=== PATIENT | female | born 1980 | race Caucasian/White ===

== ENCOUNTER 2020-11-16 12:00 | Emergency (ER) | payer BC ==
--- OUTSIDE RECORDS SUMMARY | 2020-11-16 12:05 | XMS REPORT | Continuity of Care Document ---
:1980 Author Organization [facility] t Address [address] [place] [address] Care Team Providers Name Role Phone Pcp MD Primary Care Physician Unavailable Payers Payer Name Policy Type Policy Number Effective Date Expiration Date S ource Problems This patient has no known problems. Allergies, Adverse Reactions, Alerts Allergy Allergy Status Severity Reaction(s) Onset Inactive Treating Comm ents Source Name Type Date Date Clinician No Known DA Active [facility] 10-17 Clear Intolera 00:00: Jarrell nces 00 [facility] Social History Social Habit Start Date Stop Date Quantity Comments Source Sex Assigned At [facility] Medications This patient has no known medications. Procedures This patient has no known procedures. Plan of Care Planned Activity Planned Date Details Comments Source Future Scheduled 2020-08-[address] [facility] - Test 00:00:00 (12+) [code = [facility] DEPRESSION SCREENING (12+)] Future Scheduled 2020-04-[address] [facility] - Test 00:00:00 (#1) [code = [facility] INFLUENZA VACCINE (#1)] Future Scheduled 2018-06-23 DTAP/TDAP/TD VACCINES [facility] - Test 00:00:00 (2 - Td) [code = [facility] ter DTAP/TDAP/TD VACCINES (2 - Td)] Future Scheduled [address] [facility] - Test 00:00:00 malignant ne[facility] cervix (procedure) [code = 392577012] Future Scheduled 1996-02-10 HEPATITIS C SCREENING [facility] - Test 00:00:00 [code = HEPATITIS C [facility] SCREENING] Results Test Description Test Time Test Comments Results Result Sourc e Comments MR, MRI BREAST, 2019-08-12 MRN#: WITHOUT 14:56:00 [id number] - MR, MRI BREAST, WITHOUTBREAST MRI OF BOTH BREASTS : 08/12/2019Comparison is made to exams dated: 04/29/2012 breast MRI and 11/13/2008 breast MRI - [facility]. MRI images were obtained with a dedicated breast coil. Multiplanar and multisequence MR images of the breasts are obtained before and after intravenous 13 cc Multihance contrast administration. Post contrast dynamic images are acquired, with subtraction images obtained.The images were analyzed using Scrapblog software. There is mild background enhancement in both breasts. The breast fibroglandular tissues are heterogenously dense.Nonspecific subcentimeter foci of contrast enhancement are noted in both breasts, without suspicious contrast enhancement pattern. Scattered benign cysts are seen in both breasts. IMPRESSION: BENIGN Benign breast MRI. Correlation with mammography is recommended. Patsy Morrow M.D. pth/:08/12/2019 14:56:42 Normal Exam MRI BI-RADS: 2 Benign [id number]
--- NOTE | 2020-11-16 15:12 | RAD REPORT ---
EXAM DESCRIPTION: RAD - Chest Pa And Lat (2 Views) - 11/16/2020 3:07 pm CLINICAL HISTORY: SOB Chest pain. COMPARISON: No comparisons FINDINGS: Bilateral interstitial lung opacities are seen. These are likely related to viral pneumoni a or bronchitis. The heart is normal in size. No displaced fractures.
[2020-11-16] MEDS ORDERED: NA CHLORIDE 0.9% 1,000 ML ONE (17:09)
[2020-11-16 17:23] LABS: Absolute Lymphocytes (CBC) 1.2 K/uL (0.7-4.9); Basophils % 0.2 % (0-1.3); Hematocrit 38.4 % (36.0-45.0); Lymphocytes % 29.1 % (15.3-44.8); MPV 9.5 fL (7.6-11.3); RBC Red Blood Cell Count 4.24 M/uL (3.86-4.86)
[2020-11-16 17:26] LABS: Protime INR 0.97
[2020-11-16 18:26] LABS: ALT/SGPT 29 U/L (12-78); AST/SGOT 22 U/L (15-37); Alkaline Phosphatase 66 U/L (45-117); BUN Blood Urea Nitrogen 10 mg/dL (7-18); Bicarbonate 24 mmol/L (21-32); Bilirubin Direct < 0.1 mg/dL (0-0.2); Bilirubin Total 0.3 mg/dL (0.2-1.0); C-Reactive Protein 7.39 mg/L (<3.00); Ferritin 42.1 ng/mL (8-388); Glucose Level 98 mg/dL (74-106); Lipase 131 U/L (73-393); Potassium 3.6 mmol/L (3.5-5.1); Sodium Level 139 mmol/L (136-145); Troponin (Emerg Dept Use Only) < 0.02 ng/mL (0.0-0.045)
--- NOTE | 2020-11-16 18:29 | EDPHYS ---
Physician Documentation [facility] Name: Linda Adkins Age: 40 yrs Sex: Female : 1980 Arrival Date: 11/16/2020 Time: 12:10 Bed 2 Private MD: ED Physician Guillermo Holland HPI: 11/16 19:51 This 40 yrs old Female presents to ER via Ambulatory with complaints of kb COVID+, Shortness Of Breath, Fast Heart rate. 19:51 The patient or guardian reports cough, that is intermittent, described as mild, with no kb sputum, difficulty breathing, flu symptoms, low-grade fever, myalgias. Onset: The symptoms/episode began/occurred 1 week(s) ago. Severity of symptoms: At their worst the symptoms were moderate, in the emergency department the symptoms are unchanged. Modifying factors: The symptoms are alleviated by nothing, the symptoms are aggravated by nothing. Associated signs and symptoms: Pertinent positives: fever, Pertinent negatives: chest pain, diarrhea, ear ache, nausea, rhinorrhea, sore throat, vomiting. The patient has not experienced similar symptoms in the past. The patient has been recently seen by a physician:. Pt reports she had some shortness of breath this morning and her heart rate was 120. States "I think I freaked myself out." Pt feeling better now, but wanted to get checked out. Pt is covid positive. 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 - Social history:: Smoking status: Patient denies any tobacco usage or history of. ROS: 19:49 Cardiovascular: Negative for chest pain, palpitations, and edema, Abdomen/GI: Negative kb for abdominal pain, nausea, vomiting, diarrhea, and constipation, : Negative for injury, bleeding, discharge, and swelling, MS/Extremity: Negative for injury and deformity, Skin: Negative for injury, rash, and discoloration, Neuro: Negative for headache, weakness, numbness, tingling, and seizure. 19:49 Constitutional: Positive for body aches, chills, fatigue, fever, malaise. 19:49 Respiratory: Positive for dyspnea on exertion, shortness of breath. Exam: 19:51 Constitutional: This is a well developed, well nourished patient who is awake, alert, kb and in no acute distress. Head/Face: Normocephalic, atraumatic. Cardiovascular: Regular rate and rhythm with a normal S1 and S2. No gallops, murmurs, or rubs. No pulse deficits. Respiratory: Respirations even and unlabored. No increased work of breathing, no retractions or nasal flaring. Abdomen/GI: Soft, non-tender. No distention Skin: Warm, dry with normal turgor. Normal color. MS/ Extremity: Pulses equal, no cyanosis. Neurovascular intact. Full, normal range of motion. Neuro: Awake and alert, GCS 15, oriented to person, place, time, and situation. Moves all extremities. Normal gait. Vital Signs: 12:29 BP 121 / 80; Pulse 100; Resp 17; Temp 97.9; Pulse Ox 100% on R/A; Weight 63.5 kg; ll1 Height 5 ft. 9 in. (175.26 cm); Pain 6/10; 16:49 BP 120 / 78; Pulse 80; Resp 16; Pulse Ox 100% on R/A; sv 17:46 BP 114 / 72; Pulse 65; Resp 16; Pulse Ox 98% on R/A; iw 12:29 Body Mass Index 20.67 (63.50 kg, 175.26 cm) ll1 MDM: 16:23 Patient medically screened. kb 18:28 Data reviewed: vital signs, nurses notes. Data interpreted: Pulse oximetry: on room air kb is 98 %. Interpretation: normal. Counseling: I had a detailed discussion with the patient and/or guardian regarding: the historical points, exam findings, and any diagnostic results supporting the discharge/admit diagnosis, lab results, radiology results, the need for outpatient follow up, a family practitioner, to return to the emergency department if symptoms worsen or persist or if there are any questions or concerns that arise at home. 11/16 16:25 Order name: BMP; Complete Time: 18:28 kb 11/16 16:25 Order name: C-Reactive Protein; Complete Time: 18:28 kb 11/16 16:25 Order name: CBC with Diff; Complete Time: 17:24 kb 11/16 16:25 Order name: D-Dimer; Complete Time: 17:46 kb 11/16 16:25 Order name: Ferritin; Complete Time: 18:28 kb 11/16 16:25 Order name: Flu kb 11/16 13:47 Order name: Chest Pa And Lat (2 Views) XRAY; Complete Time: 16:24 sv 11/16 16:25 Order name: Lactate; Complete Time: 18:36 kb 11/16 16:25 Order name: LFT's; Complete Time: 18:28 kb 11/16 16:25 Order name: Lipase; Complete Time: 18:28 kb 11/16 16:25 Order name: Procalcitonin kb 11/16 16:25 Order name: PT-INR; Complete Time: 17:46 kb 11/16 16:25 Order name: Ptt, Activated; Complete Time: 17:46 kb 11/16 16:25 Order name: Troponin (emerg Dept Use Only); Complete Time: 18:28 kb 11/16 16:25 Order name: EKG; Complete Time: 16:26 kb 11/16 16:25 Order name: Cardiac monitoring; Complete Time: 16:59 kb 11/16 16:25 Order name: Droplet/Contact Precautions; Complete Time: 16:49 kb 11/16 16:25 Order name: EKG - Nurse/Tech; Complete Time: 16:59 kb 11/16 16:25 Order name: IV Start; Complete Time: 16:59 kb 11/16 16:25 Order name: Labs collected and sent; Complete Time: 16:59 kb 11/16 16:25 Order name: O2 Per Protocol; Complete Time: 16:49 kb 11/16 16:25 Order name: O2 Sat Monitoring; Complete Time: 16:49 kb Administered Medications: 16:53 Drug: NS 0.9% 1000 ml Route: IV; Rate: 1000 ml; Site: right antecubital; hb Disposition: 18:59 Co-signature as Attending Physician, Guillermo Holland MD. rn Disposition: 11/16/20 18:29 Discharged to Home. Impression: Coronavirus infection, unspecified. - Condition is Stable. - Discharge Instructions: Viral Respiratory Infection, Dejc-Es-Dgac, COVID-19. - Prescriptions for Albuterol Sulfate 90 mcg/actuation - inhale 1-2 puff by INHALATION route every 4-6 hours; 1 Inhaler. - Medication Reconciliation Form, Thank You Letter, Antibiotic Education, Prescription Opioid Use form. - Follow up: Emergency Department; When: As needed; Reason: Worsening of condition. Follow up: Private Physician; When: 2 - 3 days; Reason: Recheck today's complaints, Continuance of care, Re-evaluation by your physician. Signatures: Dispatcher [employer] EDVA Rose Gasca, FRUIT RANCHER-C FRUIT RANCHER-Ckb Guillermo Holland MD MD rn Baxter, Heather, RN RN hb Lewis, Lynsay, RN RN ll1 Corrections: (The following items were deleted from the chart) 18:50 18:29 11/16/2020 18:29 Discharged to Home. Impression: Coronavirus infection, hb unspecified. Condition is Stable. Forms are Medication Reconciliation Form, Thank You Letter, Antibiotic Education, Prescription Opioid Use. Follow up: Emergency Department; When: As needed; Reason: Worsening of condition. Follow up: Private Physician; When: 2 - 3 days; Reason: Recheck today's complaints, Continuance of care, Re-evaluation by your physician. kb
--- NOTE | 2020-11-16 18:29 | ER ---
Nurse's Notes [facility] Name: Linda Adkins Age: 40 yrs Sex: Female : 1980 Arrival Date: 11/16/2020 Time: 12:10 Bed 2 Private MD: Diagnosis: Coronavirus infection, unspecified Presentation: 11/16 12:29 Chief complaint: Patient states: Diagnosed covid 11/10/20. Hasn't been feeling good. SOB ll1 since last night, pain to L scapular area.. Fever 100 yesterday, HR 120 earlier today. Ears feel clogged today, made her dizzy. Near syncope feeling earlier today. Coronavirus screen: Client denies travel out of the [place] in the last 14 days. chills, congestion, cough unrelated to allergies, diarrhea, difficulty breathing, fatigue, fever, headache, muscle pain, nausea, runny nose, shaking with chills, shortness of breath, sore throat, Client presents with at least one sign or symptom that may indicate coronavirus-19. Standard/surgical mask placed on the client. Ebola Screen: Patient denies travel to an Ebola-affected area in the 21 days before illness onset. Initial Sepsis Screen: Does the patient meet any 2 criteria? HR > 90 bpm. No. Patient's initial sepsis screen is negative. Does the patient have a suspected source of infection? Yes: Productive cough/pneumonia. Risk Assessment: Do you want to hurt yourself or someone else? Patient reports no desire to harm self or others. Onset of symptoms was November 09, 2020. 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 - Social history:: Smoking status: Patient denies any tobacco usage or history of. Screenin:05 Abuse screen: Denies threats or abuse. Denies injuries from another. Nutritional hb screening: No deficits noted. Tuberculosis screening: No symptoms or risk factors identified. Fall Risk None identified. Assessment: 13:47 Reassessment: Received VO from Dr Holland for CXR. sv 17:00 General: Appears in no apparent distress. Behavior is calm, cooperative. Pain: Pain hb currently is 6 out of 10 on a pain scale. Neuro: Level of Consciousness is awake, alert, obeys commands, Oriented to person, place, time, situation. Cardiovascular: Capillary refill < 3 seconds Patient's skin is warm and dry. Rhythm is regular. Respiratory: Reports shortness of breath at rest Respiratory effort is even, unlabored, Respiratory pattern is regular, symmetrical. GI: Reports nausea. : No signs and/or symptoms were reported regarding the genitourinary system. EENT: No signs and/or symptoms were reported regarding the EENT system. Derm: Skin is pink, warm \T\ dry. Musculoskeletal: Reports body aches, back pain. 18:00 Reassessment: Patient appears in no apparent distress at this time. Patient and/or hb family updated on plan of care and expected duration. Pain level reassessed. Patient is alert, oriented x 3, equal unlabored respirations, skin warm/dry/pink. Vital Signs: 12:29 BP 121 / 80; Pulse 100; Resp 17; Temp 97.9; Pulse Ox 100% on R/A; Weight 63.5 kg; ll1 Height 5 ft. 9 in. (175.26 cm); Pain 6/10; 16:49 BP 120 / 78; Pulse 80; Resp 16; Pulse Ox 100% on R/A; sv 17:46 BP 114 / 72; Pulse 65; Resp 16; Pulse Ox 98% on R/A; iw 12:29 Body Mass Index 20.67 (63.50 kg, 175.26 cm) ll1 ED Course: 12:10 Patient arrived in ED. mr 12:33 Triage completed. ll1 12:33 Arm band placed on. ll1 15:06 Chest Pa And Lat (2 Views) XRAY In Process Unspecified. EDMS 16:23 Rose Gasca FNP-C is PHCP. kb 16:23 Guillermo Holland MD is Attending Physician. kb 16:54 EKG done, by ED staff, reviewed by Guillermo Holland MD. sv 16:56 Initial lab(s) drawn, by la, sent to lab. Inserted saline lock: 22 gauge in right iw antecubital area, using aseptic technique. Blood collected. 16:58 pipe covering molder on. Pulse ox on. NIBP on. sv 17:05 Patient has correct armband on for positive identification. Bed in low position. Call hb light in reach. Side rails up X 1. 17:46 Alicia Del Real, RN is Primary Nurse. iw 18:49 No provider procedures requiring assistance completed. IV discontinued, intact, hb bleeding controlled, No redness/swelling at site. Administered Medications: 16:53 Drug: NS 0.9% 1000 ml Route: IV; Rate: 1000 ml; Site: right antecubital; hb Outcome: 18:29 Discharge ordered by . kb 18:49 Discharged to home ambulatory, with significant other. hb 18:49 Condition: stable 18:49 Discharge instructions given to patient, significant other, Instructed on discharge instructions, follow up and referral plans. medication usage, Demonstrated understanding of instructions, follow-up care, medications, Prescriptions given X 1. 18:50 Patient left the ED. hb Signatures: Dispatcher [employer] EDMS Rose Gasca, PHILOSOPHY FACULTY MEMBER-C PHILOSOPHY FACULTY MEMBER-Diana Brothers RN RN sv Rivera, Mary mr Alicia Del Real, RN KENDRICK Ofe Lin, Jessica Mcknight RN RN RN ll1
[2020-11-16 19:39] VITALS: TEMP 97.9
[2020-11-16 19:42] VITALS: BP 114/72; O2SAT 98
--- NOTE | 2020-11-17 12:48 | EKG ---
Test Date: 2020-11-16 Test Time: 16:54:19 Supervisor Modern Languages: SV MEASUREMENT RESULTS: Intervals: Rate: 86 MO: 106 QRSD: 78 QT: 322 QTc: 385 [place]: P: 74 MO: 106 QRS: 55 T: 152 INTERPRETIVE STATEMENTS: Sinus rhythm with short MO with frequent premature ventricular complexes Low voltage QRS ST & T wave abnormality, consider inferolateral ischemia Abnormal ECG No previous ECG available for comparison Electronically Signed On 11-17-20 12:45:35 CDT by Edward Uriostegui
== END 2020-11-16 18:50 | disposition home or self-care (01) ==
LOC: ER 12:00
DX: U07.1 COVID-19 (principal); Z91.048 Other nonmedicinal substance allergy status
CPT/HCPCS: 93005; 85025; 80048; 36415; 85610; 85379; 80076; 83605; 85730; 84484; 82728; 83690; 84145; 86140; 87804 ×2; 71046; J7030; 99284